=== PATIENT | female | born 1985 | race Caucasian/White ===

== ENCOUNTER 2016-11-16 11:45 | Emergency (ER) | payer SELFPAY ==
[~2016-11-16] VITALS: Ht 170.2 cm; Wt 100.0 kg
[~2016-11-16 11:45] MED LIST: ALPR.25 PO
[2016-11-16 11:51] VITALS: BP 115/83; PULSE 92; RESP 16; TEMP 97.8; O2SAT 98
[2016-11-16 12:17] LABS: BLOOD, URINE LARGE (NEG); GLUCOSE,URINE NEG (NEG); KETONE, URINE NEG (NEG); NITRITE,URINE NEG (NEG)
[2016-11-16 12:22] LABS: METHOD OF COLLECTION CLEAN CATCH; RBC, URINE INNUM /hpf (0-3); SQUAMOUS EPITHELIAL CELL URINE > 8 /hpf (0-5); URINE COLOR YELLOW (YELLW/STRAW); WBC, URINE INNUM /hpf (0-5)
--- NOTE | 2016-11-16 12:22 | PD ---
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 The patient notes a one-week history of vaginal discharge, initially white, with itching. The patient used [id number] vaginal suppositories for yeast infection for 3 days without alleviation of her symptoms. The patient then bought a seven-day Monistat last night and used a vaginal suppository last night. Patient now complains of dysuria, frequency, urgency, small amount of blood in her urine. She also complains of dryness in the vaginal area. The patient's last menstrual cycle was October 31, 2016. She denies , however, is currently sexually active. She denies any nausea , vomiting, upper abdominal pain, or change in bowel habits. Symptoms are moderate, there are no known alleviating or exacerbating factors. PFSH Past Medical History Anxiety: Yes Cardiovascular Problems: Yes (HEART PALPATIONS) Diabetes: No Diminished Hearing: No Endocrine: No Genitourinary: No Musculoskeletal: No Neurologic: No Reproductive: No Respiratory: No Thyroid Disease: No Influenza Vaccination: No ?: Not LMP: 10/31/16 : 2 Para: 1 : 1 Past Surgical History Abdominal Surgery: Yes (APPENDECTOMY ) Appendectomy: Yes (1989) Section: Yes (2002) Other Surgery: Yes Social History Alcohol Use: Yes (OCC) Tobacco Use: Yes (/2 PPD) Substance Use: Yes ("WEED" SOCIALLY) Allergies-Medications (Allergen,Severity, Reaction): Coded Allergies: Latex (Verified Allergy, Mild, 11/16/16) Penicillin (Verified Allergy, Mild, 11/16/16) Bactrim (Verified Allergy, Unknown, Rash, 11/16/16) Reported Meds & Prescriptions Reported Meds & Active Scripts Active No Active Prescriptions or Reported Medications Review of Systems Except as stated in HPI: all other systems reviewed are Neg General / Constitutional: No: Fever Cardiovascular: No: Chest Pain or Discomfort Respiratory: No: Shortness of Breath Gastrointestinal: No: Nausea, Vomiting, Diarrhea, Abdominal Pain Genitourinary: Positive: Dysuria, Hematuria, Pelvic Pain, Discharge, No: Vaginal Bleeding Musculoskeletal: No: Myalgias, Arthralgias Skin: Positive Itching, No Rash Physical Exam Narrative GENERAL: Awake, alert, pleasant 31-year-old female who appears her stated age and is in no acute respiratory distress. SKIN: Focused skin assessment warm/dry. HEAD: Atraumatic. Normocephalic. EYES: No injection or drainage. NECK: Trachea midline. No JVD. GASTROINTESTINAL: Abdomen soft, mild suprapubic tenderness. No rebound tenderness, guarding, or rigidity. Back: No CVA tenderness. Pelvic: Exam was performed in the presence of a female nurse. External examination reveals no rashes or lesions. The vaginal vault reveals slightly irritated and dry vaginal vault, cervix is closed, clumpy white vaginal discharge noted. MUSCULOSKELETAL: No obvious deformities. No clubbing. No cyanosis. No edema. NEUROLOGICAL: Awake and alert. No obvious cranial nerve deficits. Motor grossly within normal limits. Normal speech. PSYCHIATRIC: Appropriate mood and affect; insight and judgment normal. Data Data Last Documented VS Vital Signs Date Time Temp Pulse Resp B/P Pulse Ox O2 Delivery O2 Flow Rate FiO2 11/16/16 11:51 97.8 92 16 115/83 98 Orders Urinalysis - C+S If Indicated (11/16/16 11:54) Gc And Chlamydia Pcr (11/16/16 12:16) Wet Prep Profile (11/16/16 12:16) Ed Urine Pregnancytest Poc (11/16/16 12:16) Urine Culture (11/16/16 11:50) Labs Laboratory Tests Test 11/16/16 11/16/16 11:50 12:44 Urine Collection Type CLEAN CATCH Urine Color YELLOW Urine Turbidity MOD Urine pH 6.0 Urine Specific [place] 1.019 Urine Protein 30 mg/dL Urine Glucose (UA) NEG mg/dL Urine Ketones NEG mg/dL Urine Occult Blood LARGE Urine Nitrite NEG Urine Bilirubin NEG Urine Leukocyte Esterase LARGE Urine RBC INNUM /hpf Urine WBC INNUM /hpf Urine WBC Clumps MANY Urine Squamous Epithelial > 8 /hpf Cells Urine Bacteria FEW /hpf Urine Yeast (Budding) MANY Microscopic Urinalysis Comment CULTURE INDICATED Urine Collection Time 11:50 Clue Cells (Wet Prep) NONE SEEN Vaginal Trichomonas (Wet Prep) NONE SEEN Vaginal Yeast (Wet Prep) PRESENT MDM Medical Decision Making Medical Screen Exam Complete: Yes Emergency Medical Condition: Yes Medical Record Reviewed: Yes Interpretation(s) Laboratory Tests Test 11/16/16 11/16/16 11:50 12:44 Urine Collection Type CLEAN CATCH Urine Color YELLOW Urine Turbidity MOD Urine pH 6.0 Urine Specific [place] 1.019 Urine Protein 30 mg/dL Urine Glucose (UA) NEG mg/dL Urine Ketones NEG mg/dL Urine Occult Blood LARGE Urine Nitrite NEG Urine Bilirubin NEG Urine Leukocyte Esterase LARGE Urine RBC INNUM /hpf Urine WBC INNUM /hpf Urine WBC Clumps MANY Urine Squamous Epithelial > 8 /hpf Cells Urine Bacteria FEW /hpf Urine Yeast (Budding) MANY Microscopic Urinalysis Comment CULTURE INDICATED Urine Collection Time 11:50 Clue Cells (Wet Prep) NONE SEEN Vaginal Trichomonas (Wet Prep) NONE SEEN Vaginal Yeast (Wet Prep) PRESENT Differential Diagnosis Differential diagnosis includes UTI, vaginitis, cervicitis, PID, Trichomonas, bacterial vaginosis, yeast infection. Narrative Course A UA was sent to lab. Bedside test was obtained and was negative. A pelvic exam was performed and wet prep was sent to lab. UA reveals innumerable RBCs and WBCs with bacteria and yeast. Most likely this reveals a hemorrhagic cystitis with secondary yeast infection. Therefore, patient will be treated with Cipro twice a day for 7 days and Diflucan 150 mg tablet at the end of treatment. Wet prep was positive for use. Gonorrhea and chlamydia are pending via PCR [facility] urine, however, patient will not be treated at this time is she appears to have hemorrhagic cystitis and underlying yeast infection. Diagnosis Primary Impression: Hemorrhagic cystitis Additional Impression: Yeast infection Patient Instructions: General Instructions Additional Instructions: Medications as directed. Follow-up with your primary physician. Return if symptoms worsen or progress. Med/Other Pt SpecificInfo: Prescription(s) given Scripts Fluconazole (Diflucan)150 Mg [id number] Mg PO ONCE #1 TAB Ref 0 Prov:Trent Monaco MD 11/16/16 Ciprofloxacin (Cipro)500 Mg [id number] Mg PO BID 7 Days Ref 0 Prov:Trent Monaco MD 11/16/16 Disposition: 01 DISCHARGE HOME Condition: Stable Trent Monaco MD Nov 16, 2016 12:22
[2016-11-16 12:25] LABS: BACTERIA, URINE FEW /hpf; COMMENT (UR) CULTURE INDICATED; CULTURE IF INDICATED CULTURE INDICATED
[2016-11-16] MEDS ORDERED: DIFL150T PO (13:25)
[2016-11-16] MEDS ORDERED: CIPR-9 PO (13:25)
[2016-11-16 13:37] VITALS: BP 120/80
[2016-11-16 18:19] LABS: CHLAMYDIA PCR NOT DETECTED (NOT DETECT); NEISSERIA PCR DETECTED (NOT DETECT)
== END 2016-11-16 13:37 | disposition home or self-care (01) ==
LOC: PHED 11:45
DX: N30.91 Cystitis, unspecified with hematuria (principal); B37.3 Candidiasis of vulva and vagina; F17.210 Nicotine dependence, cigarettes, uncomplicated
CPT/HCPCS: 81001; 84703; 87077; 87086; 87186; 87210; 87491; 87591; 99283

== ENCOUNTER 2016-11-17 18:39 | Emergency (ER) | payer SELFPAY ==
[~2016-11-17] VITALS: Ht 170.2 cm; Wt 99.5 kg
[~2016-11-17 18:39] MED LIST changes: -ALPR.25 PO; +CIPR-9 PO; +DIFL150T PO
[2016-11-17 18:43] VITALS: BP 114/84; PULSE 93; RESP 18; TEMP 98.3; O2SAT 99
[2016-11-17] MEDS ORDERED: cefTRIAXone 250 MG VIAL IM ONE (19:15)
[2016-11-17] MEDS ORDERED: AZITHROMYCIN PWD FOR SUSP 1 GM PACKET PO ONE (19:15)
--- NOTE | 2016-11-17 19:46 | PD ---
HPI Chief Complaint: Abnormal Results Time Seen by Provider: 18:54 Travel History International Travel<30 days: No Contact w/Intl Traveler<30days: No Traveled to known affect area: No History of Present Illness HPI Patient is a 31-year-old female who comes in because she was called back for positive gonorrhea swab. She was here yesterday and diagnosed with the UTI. She says she's had some lower abdominal pain and blood in her urine for the past few days. She says she is starting to feel better, but she still has symptoms of a yeast infection. She was given a prescription for antibiotics as well as Diflucan yesterday and is waiting to finish the antibiotics before taking the Diflucan. She is aware of the results of the gonorrhea swab. She says she has already spoken with her sexual partners. She has no new complaints at this time. PFSH Past Medical History Anxiety: Yes Cardiovascular Problems: Yes (HEART PALPATIONS) Diabetes: No Diminished Hearing: No Endocrine: No Genitourinary: No Musculoskeletal: No Neurologic: No Reproductive: No Respiratory: No Thyroid Disease: No ?: Not : 2 Para: 1 : 1 Past Surgical History Abdominal Surgery: Yes (APPENDECTOMY ) Appendectomy: Yes (1989) Section: Yes (2002) Other Surgery: Yes Social History Alcohol Use: Yes ([facility]) Tobacco Use: Yes (08/08 PPD) Substance Use: Yes ("WEED" SOCIALLY) Allergies-Medications (Allergen,Severity, Reaction): Coded Allergies: Latex (Verified Allergy, Mild, 11/16/16) Penicillin (Verified Allergy, Mild, 11/16/16) Bactrim (Verified Allergy, Unknown, Rash, 11/16/16) Reported Meds & Prescriptions Reported Meds & Active Scripts Active Diflucan (Fluconazole) 150 Mg Tab 150 Mg PO ONCE Cipro (Ciprofloxacin HCl) 500 Mg Tab 500 Mg PO BID 7 Days Review of Systems General / Constitutional: No: Fever Cardiovascular: No: Chest Pain or Discomfort Respiratory: No: Shortness of Breath Gastrointestinal: Positive: Abdominal Pain, No: Nausea, Vomiting Genitourinary: Positive: Dysuria, Hematuria Musculoskeletal: No: Myalgias Neurologic: No: Weakness Physical Exam Narrative GENERAL: Awake and alert, in no acute distress. SKIN: Focused skin assessment warm/dry. HEAD: Atraumatic. Normocephalic. EYES: Pupils equal and round. No scleral icterus. ENT: No nasal bleeding or discharge. Mucous membranes pink and moist. CARDIOVASCULAR: Regular rate and rhythm. RESPIRATORY: No accessory muscle use. Clear to auscultation. Breath sounds equal bilaterally. GASTROINTESTINAL: Abdomen soft, nondistended. Mild suprapubic tenderness. NEUROLOGICAL: Awake and alert. No obvious cranial nerve deficits. Motor grossly within normal limits. Normal speech. Data Data Last Documented VS Vital Signs Date Time Temp Pulse Resp B/P Pulse Ox O2 Delivery O2 Flow Rate FiO2 11/17/16 18:43 98.3 93 18 114/84 99 Orders Ceftriaxone Inj (Rocephin Inj) (11/17/16 19:15) Azithromycin Powd Pack (Zithromax Powd P (11/17/16 19:15) [facility] Medical Decision Making Medical Screen Exam Complete: Yes Emergency Medical Condition: Yes Medical Record Reviewed: Yes Differential Diagnosis Gonorrhea versus UTI versus pyelonephritis Narrative Course Patient is a 31-year-old female who comes in because she was called to return for treatment for gonorrhea. Exam shows some mild suprapubic tenderness. Patient is already on appropriate antibiotics for her UTI. Given a dose of Rocephin and azithromycin here to treat gonorrhea as well as Chlamydia. Patient advised to use protection when having sexual intercourse. Told she needs to inform all of her partners. Advised follow-up with her doctor. Advised to return to the ED as needed for any worsening symptoms. Diagnosis Primary Impression: Acute urogenital gonorrhea Patient Instructions: General Instructions, Gonorrhea (ED) Additional Instructions: Follow up with your doctor. Continue your current medications. Return to the ED as needed for any worsening symptoms. Disposition: 01 DISCHARGE HOME Condition: Stable Aminah Petty MD Nov 17, 2016 19:46
== END 2016-11-17 20:05 | disposition home or self-care (01) ==
LOC: PHEFT 18:39
DX: A54.9 Gonococcal infection, unspecified (principal); N39.0 Urinary tract infection, site not specified; F17.210 Nicotine dependence, cigarettes, uncomplicated; R00.2 Palpitations
CPT/HCPCS: 96372; 99283; J0696

== ENCOUNTER 2016-12-02 11:57 | Emergency (ER) | payer SELFPAY ==
[~2016-12-02] VITALS: Ht 170.2 cm; Wt 97.5 kg
[2016-12-02 12:00] VITALS: BP 130/75; PULSE 91; RESP 18; TEMP 98.2; O2SAT 100
[2016-12-02] MEDS ORDERED: SODIUM CHLOR 0.9% 1000 ML INJ 1,000 ML IV ONE (12:45)
[2016-12-02] MEDS ORDERED: KETOROLAC TROMETHAMINE 30 MG/ML (IVP) VIAL IV PUSH ONE (12:45)
[2016-12-02 12:57] LABS: AUTOMATED NEUTROPHIL # 9.7 TH/MM3 (1.8-7.7); BASOPHIL % 0.4 % (0.0-2.0); EOSINOPHIL # 0.1 TH/MM3 (0-0.4); EOSINOPHIL % 0.8 % (0.0-4.0); LYMPH % 9.5 % (9.0-44.0); LYMPHOCYTE # 1.1 TH/MM3 (1.0-4.8); MEAN CELL VOLUME 76.1 FL (80.0-100.0); MEAN CORPUSCULAR HEMOGLOBIN 24.1 PG (27.0-34.0); MEAN CORPUSCULAR HGB CONC 31.7 % (32.0-36.0); MONO % 4.8 % (0.0-8.0); NEUT % 84.5 % (16.0-70.0); PLATELET COUNT 330 TH/MM3 (150-450); RED BLOOD COUNT 4.33 MIL/MM3 (4.00-5.30); RED CELL DISTRIBUTION WIDTH 18.7 % (11.6-17.2); WHITE BLOOD COUNT 11.4 TH/MM3 (4.0-11.0)
[2016-12-02 13:03] LABS: BLOOD, URINE LARGE (NEG); GLUCOSE,URINE NEG (NEG); HEMO FLAGS AUTO DIFF; KETONE, URINE NEG (NEG); NITRITE,URINE NEG (NEG); PH, URINE 5.5 (5.0-8.5)
[2016-12-02 13:05] LABS: CHLORIDE 112 MEQ/L (98-107); METHOD OF COLLECTION CLEAN CATCH; RBC, URINE INNUM /hpf (0-3); SODIUM (NA) 143 MEQ/L (136-145); URINE COLOR RED (YELLW/STRAW); WBC, URINE INNUM /hpf (0-5)
[2016-12-02 13:06] LABS: COMMENT (UR) CULTURE INDICATED; CULTURE IF INDICATED CULTURE INDICATED; SQUAMOUS EPITHELIAL CELL URINE > 8 /hpf (0-5)
[2016-12-02 13:09] LABS: ANION GAP 8 MEQ/L (5-15); BICARBONATE 23.2 MEQ/L (21.0-32.0); BLOOD UREA NITROGEN 8 MG/DL (7-18)
[2016-12-02 13:12] LABS: ALT (GPT) 16 U/L (10-53); AST (GOT) 14 U/L (15-37); GLOMERULAR FILTRATION RATE 72 ML/MIN (>89)
[2016-12-02 13:14] LABS: TOTAL BILIRUBIN ADULT 0.3 MG/DL (0.2-1.0)
[2016-12-02 13:15] LABS: ALKALINE PHOSPHATASE 73 U/L (45-117)
[2016-12-02 13:21] LABS: SCAN/DIFF AUTO DIFF CONFIRMED
--- NOTE | 2016-12-02 13:23 | RADHPO ---
EXAM DATE/TIME: 12/02/2016 13:03 [place] COMPARISON: No previous studies available for comparison. INDICATIONS : Hematuria. Bladder pressure. ORAL CONTRAST: No oral contrast ingested. RADIATION DOSE: 24.41 CTDIvol (mGy) MEDICAL HISTORY : None SURGICAL HISTORY : Appendectomy. section. ENCOUNTER: Initial ACUITY: 3 weeks PAIN SCALE: 4/10 LOCATION: Bilateral pelvis TECHNIQUE: Volumetric scanning of the abdomen and pelvis was performed. Using automated exposure control and ad justment of the mA and/or kV according to patient size, radiation dose was kept as low as reasonably achievable to obtain optimal diagnostic quality images. FINDINGS: LOWER LUNGS: The visualized lower lungs are clear. LIVER: Homogeneous density without lesion. There is no dilation of the biliary tree. No calcified gallston es. SPLEEN: Normal size without lesion. PANCREAS: Within normal limits. KIDNEYS: Normal in size and shape. There is no mass, stone, or hydronephrosis. The ureters appear unremarkabl e and there multiple small calcifications in pelvis which could represent phleboliths. A tiny distal ureteral stone is difficult to totally exclude. ADRENAL GLANDS: Within normal limits. VASCULAR: There is no aortic aneurysm. BOWEL/MESENTERY: The stomach, small bowel, and colon demonstrate no acute abnormality. There is no free intraperitone al air or fluid. ABDOMINAL WALL: Within normal limits. RETROPERITONEUM: There is no lymphadenopathy. BLADDER: No wall thickening or mass. REPRODUCTIVE: Within normal limits. INGUINAL: There is no lymphadenopathy or hernia. MUSCULOSKELETAL: Within normal limits for patient age. CONCLUSION: 1. Multiple small calcifications in the pelvis the majority of which represent phleboliths. It is dif ficult to totally exclude a small distal ureteral calculus. 2. No definite renal calculi or hydronephrosis. Jason Oliver MD on December 02, 2016 at 13:17 Board Certified Radiologist. This report was verified electronically.
[2016-12-02] MEDS ORDERED: DOXY100C PO (13:35)
--- NOTE | 2016-12-02 13:35 | PD ---
HPI Chief Complaint: Complaint Time Seen by Provider: 12:26 Travel History International Travel<30 days: No Contact w/Intl Traveler<30days: No Traveled to known affect area: No History of Present Illness HPI Patient is a 31-year-old female who comes in complaining of burning on urination as well as blood in her urine. She was here a few weeks ago and was diagnosed with hemorrhagic cystitis. She was discharged with a prescription for Cipro, which she says she finished. She says she felt better while taking the Cipro, but as soon as she finished, the symptoms came back. She was also diagnosed with gonorrhea and has since been treated for this. She says she feels pressure in her bladder area. She denies nausea or vomiting, but says that she has diarrhea about once a day. She denies any blood in her stool. She is currently on her menstrual period. She denies any fever or chills. PFSH Past Medical History Anxiety: Yes Cardiovascular Problems: Yes (HEART PALPATIONS) Diabetes: No Diminished Hearing: No Endocrine: No Genitourinary: No Musculoskeletal: No Neurologic: No Reproductive: No Respiratory: No Thyroid Disease: No Influenza Vaccination: No ?: Not LMP: 11/28/16 : 2 Para: 1 : 1 Past Surgical History Abdominal Surgery: Yes (APPENDECTOMY ) Appendectomy: Yes (1989) Section: Yes (2002) Other Surgery: Yes Social History Alcohol Use: Yes ([facility]) Tobacco Use: Yes (08/08 PPD) Substance Use: Yes ("WEED" SOCIALLY) Allergies-Medications (Allergen,Severity, Reaction): Coded Allergies: Latex (Verified Allergy, Mild, 12/02/16) Penicillin (Verified Allergy, Mild, 12/02/16) Bactrim (Verified Allergy, Unknown, Rash, 12/02/16) Reported Meds & Prescriptions Reported Meds & Active Scripts Active No Active Prescriptions or Reported Medications Review of Systems Except as stated in HPI: all other systems reviewed are Neg General / Constitutional: No: Fever, Chills HENT: No: Headaches Cardiovascular: No: Chest Pain or Discomfort Respiratory: No: Shortness of Breath Gastrointestinal: Positive: Diarrhea, Abdominal Pain, No: Nausea, Vomiting Genitourinary: Positive: Dysuria, Hematuria, No: Flank Pain Skin: No Rash, No Change in Pigmentation Neurologic: No: Weakness, Dizziness Physical Exam Narrative GENERAL: Awake and alert, in no acute distress. SKIN: Focused skin assessment warm/dry. HEAD: Atraumatic. Normocephalic. EYES: Pupils equal and round. No scleral icterus. ENT: Mucous membranes pink and moist. NECK: Trachea midline. No JVD. CARDIOVASCULAR: Regular rate and rhythm. No murmur appreciated. RESPIRATORY: No accessory muscle use. Clear to auscultation. Breath sounds equal bilaterally. GASTROINTESTINAL: Abdomen soft, non-tender, nondistended. No rebound or guarding, no CVA tenderness. MUSCULOSKELETAL: No obvious deformities. No clubbing. No cyanosis. No edema. NEUROLOGICAL: Awake and alert. No obvious cranial nerve deficits. Motor grossly within normal limits. Normal speech. PSYCHIATRIC: Appropriate mood and affect; insight and judgment normal. Data Data Last Documented VS Vital Signs Date Time Temp Pulse Resp B/P Pulse Ox O2 Delivery O2 Flow Rate FiO2 12/02/16 12:00 98.2 91 18 130/75 100 Orders Complete Blood Count With Diff (12/02/16 12:35) Comprehensive Metabolic Panel (12/02/16 12:35) Urinalysis - C+S If Indicated (12/02/16 12:35) Ed Urine Pregnancytest Poc (12/02/16 12:35) Sodium Chlor 0.9% 1000 Ml Inj (Ns 1000 M (12/02/16 12:45) Ketorolac Inj (Toradol Inj) (12/02/16 12:45) Ct Abd/Pel W/O Iv Contrast (12/02/16 ) Urine Culture (12/02/16 12:50) Labs Laboratory Tests Test 12/02/16 12:50 White Blood Count 11.4 TH/MM3 Red Blood Count 4.33 MIL/MM3 Hemoglobin 10.4 GM/DL Hematocrit 33.0 % Mean Corpuscular Volume 76.1 FL Mean Corpuscular Hemoglobin 24.1 PG Mean Corpuscular Hemoglobin 31.7 % Concent Red Cell Distribution Width 18.7 % Platelet Count 330 TH/MM3 Mean Platelet Volume 8.1 FL Neutrophils (%) (Auto) 84.5 % Lymphocytes (%) (Auto) 9.5 % Monocytes (%) (Auto) 4.8 % Eosinophils (%) (Auto) 0.8 % Basophils (%) (Auto) 0.4 % Neutrophils # (Auto) 9.7 TH/MM3 Lymphocytes # (Auto) 1.1 TH/MM3 Monocytes # (Auto) 0.5 TH/MM3 Eosinophils # (Auto) 0.1 TH/MM3 Basophils # (Auto) 0.0 TH/MM3 CBC Comment AUTO DIFF Differential Comment AUTO DIFF CONFIRMED Urine Collection Type CLEAN CATCH Urine Color RED Urine Turbidity MARKED Urine pH 5.5 Urine Specific [place] 1.010 Urine Protein 30 mg/dL Urine Glucose (UA) NEG mg/dL Urine Ketones NEG mg/dL Urine Occult Blood LARGE Urine Nitrite NEG Urine Bilirubin NEG Urine Leukocyte Esterase MOD Urine RBC INNUM /hpf Urine WBC INNUM /hpf Urine Squamous Epithelial > 8 /hpf Cells Urine Yeast (Budding) MANY Microscopic Urinalysis Comment CULTURE INDICATED Urine Collection Time 12:50 Sodium Level 143 MEQ/L Potassium Level 4.0 MEQ/L Chloride Level 112 MEQ/L Carbon Dioxide Level 23.2 MEQ/L Anion Gap 8 MEQ/L Blood Urea Nitrogen 8 MG/DL Creatinine 0.91 MG/DL Estimat Glomerular Filtration 72 ML/MIN Rate Random Glucose 91 MG/DL Calcium Level 8.1 MG/DL Total Bilirubin 0.3 MG/DL Aspartate Amino Transf 14 U/L (AST/SGOT) Alanine Aminotransferase 16 U/L (ALT/SGPT) Alkaline Phosphatase 73 U/L Total Protein 6.3 GM/DL Albumin 3.4 GM/DL [facility] Medical Decision Making Medical Screen Exam Complete: Yes Emergency Medical Condition: Yes Medical Record Reviewed: Yes Differential Diagnosis UTI versus renal stone versus hemorrhagic cystitis Narrative Course Patient is a 31-year-old female who comes in complaining of dysuria and hematuria. Exam shows no acute abnormalities. Urine is bloody. IV established and labs sent. Labs show mild white count of 11.4. Creatinine is within normal limits. Patient given IV fluids and Toradol. CT of the abdomen and pelvis performed shows possible distal ureteral stone, no significant acute abnormalities. Patient's urine grew Salmonella on previous visit. Patient is allergic to penicillin and Bactrim. We'll try doxycycline for her symptoms. Referral placed to urology. Patient advised to follow-up with urology and a primary care physician. Advised to return to the ED as needed for any worsening symptoms. Diagnosis Primary Impression: Hemorrhagic cystitis Referrals: Arsenio Montoya MD call for appointment Patient Instructions: General Instructions, Hematuria (ED), Urinary Tract Infection in Women (ED) Additional Instructions: Follow up with urology. Drink plenty of fluids. Take all of your antibiotics. Return to the ED as needed for any worsening symptoms. Scripts Doxycycline Hyclate 100 Mg [id number] Mg PO BID #20 CAP Ref 0 Prov:Aminah Petty MD 12/02/16 Disposition: 01 DISCHARGE HOME Condition: Stable Aminah Petty MD Dec 02, 2016 13:35
[2016-12-02 13:52] VITALS: BP 122/78
== END 2016-12-02 13:58 | disposition home or self-care (01) ==
LOC: PHED 11:57
DX: N30.91 Cystitis, unspecified with hematuria (principal); B95.1 Streptococcus, group B, as the cause of diseases classified elsewhere; B96.89 Other specified bacterial agents as the cause of diseases classified elsewhere; R00.2 Palpitations; F17.210 Nicotine dependence, cigarettes, uncomplicated
CPT/HCPCS: 74176; 80053; 81001; 84703; 85025; 86403; 87077; 87086; 87186; 96374; 99284; J1885; J7030